=== PATIENT | male | born 1965 | race Caucasian/White ===

== ENCOUNTER 2024-02-23 13:31 | Emergency (ER) | payer OTHER, SELFPAY ==
[2024-02-23 13:35] VITALS: BP 143/100
[2024-02-23 14:36] VITALS: BMI 30.5
[2024-02-23] MEDS: VALIUM 5 MG PO (14:40)
[2024-02-23 14:51] LABS: % Basophils 0.2 % (0-2); % Eosinophils 0.2 % (0-6); % Immature Granulocytes 0.4 % (0-0.5); % Lymphocytes 25.6 % (20.5-51.1); % Monocytes 7.2 % (1.7-9.3); % Neutrophils 66.4 % (42.2-75.2); Absolute Lymphocytes 2.4 10^3/uL (1.2-3.4); Absolute Monocytes 0.7 10^3/uL (0.1-0.6); Absolute Neutrophils 6.2 10^3/uL (1.4-6.5); Hematocrit 45.7 % (39.0-52.0); Hemoglobin 15.7 g/dL (13.0-18.0); Mean Corp Hgb Conc. 34.4 g/dL (33.0-37.0); Mean Corpuscular Hgb 31.1 pg (27.0-31.0); Mean Corpuscular Volume 90.5 fL (80.0-94.0); Mean Platelet Volume 9.8 fL (7.4-10.4); Nucleated Red Blood Cells % 0 % (-); Platelet Count 374 10^3/uL (130-400); Red Blood Cell Count 5.05 10^6/uL (4.70-6.10); White Blood Cell Count 9.3 10^3/uL (4.8-10.8)
[2024-02-23 14:59] VITALS: BP 137/100
--- NOTE | 2024-02-23 15:36 | ED.GENMED ---
History of Present Illness
<ELAN Mejia Jr. Last Filed: 02/25/24 15:09>
General
Chief Complaint: Back Pain
Source: patient and family
Exam Limitations: none
Time Seen by Provider: 02/23/24 14:01
Nursing documentation reviewed up to this point in time: agreed with
History of Present Illness
History of Present Illness:
58-year-old male with past medical history of chronic back pain IBS thyroid disorder presenting to the emergency department today with concerns of ongoing back pain also feels that sometimes his leg will give out also is felt that he is felt some
issues with balance over the past few weeks. He was seen at [facility] yesterday had an assessment there but was discharged home. Denies any specific fevers chest pain changes in bowel or bladder function numbness or weakness to the lower
extremities that are continuous.
Past History
<Jose Pete Jr., PA-C - Last Filed: 02/25/24 15:09>
Past History
ED Past Medical History: Hyperthyroidism and Psychiatric (Bipolar disorder)
ED Past Surgical History: Other (Globe teeth removal)
Social History
Tobacco: Non-smoker
Alcohol: None
Drug: None
Employment: Employed
Review of Systems
<ELAN Mejia Jr. Last Filed: 02/25/24 15:09>
Review of Systems
Allergies reviewed?: Yes
All Other Systems: ROS reviewed and negative except as documented in HPI and ROS
Phy Exam
<ELAN Mejia Jr. Last Filed: 02/25/24 15:09>
Physical Exam
Physical Exam:
GENERAL: Alert , in no apparent distress
EYE: pupils equal and reactive
NECK: Supple, no significant adenopathy.
ENT: o/p clr, mmm.
CARDIAC: Regular rate and rhythm .
LUNGS: Clear breath sounds bilaterally, no acute respiratory distress, no wheezes/rales/rhonchi
ABDOMEN: Soft, without focal tenderness, no r/g, no cvat
NEUROLOGICAL: Alert and oriented, no focal neuro deficits 5 out of 5 upper and lower extremity normal coordination able to ambulate.
SKIN: Warm and dry, skin intact.
MUSCULOSKELETAL: No edema, well perfused.
PSYCH: Normal and appropriate interaction.
Course
<Jose Pete Jr., PA-C - Last Filed: 02/25/24 15:09>
Orders/Labs/Results
Orders:
Orders
02/23/24 14:27
EKG [Electrocardiogram (*1)] Urgent
Reason for Study: Fatigue / Weakness
CT Head W/o Iv Contrast Urgent
Comment:
Reason For Exam: balance issues
EKG- Treatment ONCE
02/23/24 14:32
Diazepam [Valium] 5 mg PO NOW STA
02/23/24 14:33
Diazepam [Valium] 5 mg .ROUTE .STK-MED ONE
02/23/24 14:39
Complete Blood Count/With Diff Urgent
TSH Urgent
02/23/24 15:13
Comprehensive Metabolic Panel Urgent
Kenedy Urgent
02/23/24 15:38
Crisis Consult Urgent
Reason for Consult: depression,
02/23/24 16:27
Ketorolac [Toradol] 30 mg IV NOW STA
02/23/24 20:00
Diazepam [Valium] 5 mg PO BID
Abnormal Lab Results
02/23/24 02/23/24
14:39 15:13
MCH 31.1 H pg
(27.0-31.0)
Absolute Monos (auto) 0.7 H 10^3/uL
(0.1-0.6)
Carbon Dioxide 21 L mmol/L
(22-30)
AST 124 H U/L
(17-59)
TSH 5.59 H uIU/ml
(0.47-4.68)
02/23/24 14:39
02/23/24 15:13
Vital Signs
Initial and Last Documented VS:
Initial Vital Signs
Temp Pulse Resp BP Pulse Ox
98.4 F 120 16 143/100 98
02/23/24 13:35 02/23/24 13:35 02/23/24 13:35 02/23/24 13:35 02/23/24 13:35
Last Documented Vital Signs
Temp Pulse Resp BP Pulse Ox
98.4 F 96 20 136/94 95
02/23/24 13:35 02/23/24 17:00 02/23/24 17:00 02/23/24 16:46 02/23/24 17:00
<Hussein Tovar PA-C - Last Filed: 02/23/24 20:47>
Orders/Labs/Results
Orders:
Orders
02/23/24 14:27
EKG [Electrocardiogram (*1)] Urgent
Reason for Study: Fatigue / Weakness
CT Head W/o Iv Contrast Urgent
Comment:
Reason For Exam: balance issues
EKG- Treatment ONCE
02/23/24 14:32
Diazepam [Valium] 5 mg PO NOW STA
02/23/24 14:33
Diazepam [Valium] 5 mg .ROUTE .STK-MED ONE
02/23/24 14:39
Complete Blood Count/With Diff Urgent
TSH Urgent
02/23/24 15:13
Comprehensive Metabolic Panel Urgent
Kenedy Urgent
02/23/24 15:38
Crisis Consult Urgent
Reason for Consult: depression,
02/23/24 16:27
Ketorolac [Toradol] 30 mg IV NOW STA
02/23/24 20:00
Diazepam [Valium] 5 mg PO BID
Abnormal Lab Results
02/23/24 02/23/24
14:39 15:13
MCH 31.1 H pg
(27.0-31.0)
Absolute Monos (auto) 0.7 H 10^3/uL
(0.1-0.6)
Carbon Dioxide 21 L mmol/L
(22-30)
AST 124 H U/L
(17-59)
TSH 5.59 H uIU/ml
(0.47-4.68)
02/23/24 14:39
02/23/24 15:13
Vital Signs
Initial and Last Documented VS:
Initial Vital Signs
Temp Pulse Resp BP Pulse Ox
98.4 F 120 16 143/100 98
02/23/24 13:35 02/23/24 13:35 02/23/24 13:35 02/23/24 13:35 02/23/24 13:35
Last Documented Vital Signs
Temp Pulse Resp BP Pulse Ox
98.4 F 96 20 136/94 95
02/23/24 13:35 02/23/24 17:00 02/23/24 17:00 02/23/24 16:46 02/23/24 17:00
<Jose Pete Jr., PA-C - Last Filed: 02/25/24 15:09>
MDM/Problems Addressed
MDM/Problems Addressed:
58-year-old male presenting to the emergency department today with concerns of back pain also concerned that he is felt 'off' he has had some fatigue he also claims that his speech seemed off yesterday though it seems normal here. Claims that he
had a few falls over the past few weeks but denies any specific major trauma. Long likely seems to be secondary to his back to potential radicular symptoms. Seems to only be to the right side. No fevers no chest pain or shortness of breath.
Patient given Valium with improvement of symptoms. Labs unremarkable. Kenedy level normal. EKG nonischemic. Head CT ordered considering patient's claims of neurologic symptoms. Symptoms have been ongoing for weeks if CT scan normal likely will
need follow-up with neurology as well as spine surgery for patient's ongoing back pain.
<Hussein Tovar PA-C - Last Filed: 02/23/24 20:47>
*Critical Care Note
Total Time (30-74mins, 75-104mins- exclusive of procedures): Not Applicable
<Hussein Tovar PA-C - Last Filed: 02/23/24 20:47>
Update Note
Update Note:
Imaging reviewed, CT unremarkable. Pt d/c in stable condition
ED Attending Note
<Jose Pete Jr., PA-C - Last Filed: 02/25/24 15:09>
-
Portions of this chart may have been created with voice recognition software.� Occasional wrong word or��sound alike� substitutions may have occurred due to the inherent limitations of voice recognition software.
Discharge Plan
Departure
Patient Disposition: Home (Routine Discharge)
Date of Disposition: 02/23/24
Time of Disposition: 18:15
Patient with high blood pressure during this ER visit?: No
Condition: Good
Covid-19: Not Applicable
Discharge Problem:
Intermittent memory loss, Back pain
Instructions: Low Back Pain (DC), Radiculopathy (DC)
Prescriptions:
New
tizanidine [Zanaflex] 4 mg capsule
4 mg PO BID PRN (Reason: muscle spasticity) Qty: 10 0RF
No Action
levothyroxine 100 MCG tablet
100 mcg PO DAILY
lithium carbonate 600 MG capsule
600 mg PO BID
divalproex 250 MG tablet,delayed release (DR/EC)
750 mg PO HS
trazodone 150 MG tablet
150 mg PO HS
buspirone [BuSpar] 30 MG tablet
30 mg PO BID
rosuvastatin 10 MG tablet
10 mg PO DAILY
lurasidone [Latuda] 60 MG tablet
60 mg PO DAILY
Dulcolax 30 ML Liquid
30 ml PO DAILY
oxycodone-acetaminophen 1 EACH tablet
1 - 2 tab PO PRN PRN (Reason: pain)
cannabidiol [Epidiolex] 1 UNIT solution
1 unit PO PRN PRN (Reason: anxiety)
albuterol sulfate 1 PUFF HFA aerosol inhaler
1 puff inhalation PRN PRN (Reason: Asthma)
clonazepam 0.5 MG tablet
0.5 mg PO PRN PRN (Reason: anxiety)
Referrals:
Enrique Mcneil MD [Active] - Follow up in 5-7 days
Mae Powers MD [Active] - Follow up in 5-7 days
UNKNOWN - PT DOES,NOT KNOW [Unknown Provider] -
Stand Alone Forms: Return to Work
Activity Restrictions/Additional Instructions:
You came to the emergency department today with concerns of back pain and additional symptoms. Here had a reassuring assessment. Please follow close with the back doctor as well as the brain doctor. Return to the emergency department for any
worsening, new or concerning symptoms.
Interventions
Interventions:
*Risk Screen - Suicide Last Done: 02/23/24 14:37
*General Assessment Last Done: 02/23/24 14:37
*Neglect/Abuse Screening Last Done: 02/23/24 14:37
ED- Fall Risk Assessment Last Done: 02/23/24 14:37
*ED COVID-19 Vaccine History Last Done: 02/23/24 14:37
*Nursing Disposition Last Done: 02/23/24 18:57
ED-Musculoskeletal Assessment Last Done: 02/23/24 14:37
Discharge Date and Time
Discharge Date/Time: 02/23/24 18:57
Print Language: CHINESE
[2024-02-23 15:39] LABS: ALT (SGPT) 40 U/L (0-50); AST (SGOT) 124 U/L (17-59); Albumin 4.9 g/dl (3.5-5.0); Alkaline Phosphatase 58 U/L (38-126); Blood Urea Nitrogen 19 mg/dl (9-20); Calcium 9.9 mg/dl (8.4-10.2); Carbon Dioxide 21 mmol/L (22-30); Chloride 104 mmol/L (98-107); Estimated Creatinine Clearance 90 ml/min; Glucose 87 mg/dl (70-99); Lithium 0.6 mmol/L (0.6-1.2); Potassium 4.5 mmol/L (3.5-5.1); Sodium 140 mmol/L (135-145); Total Bilirubin 0.9 mg/dl (0.2-1.3); Total Protein 7.2 g/dl (6.3-8.2); eGFR > 60.00
[2024-02-23 15:40] LABS: TSH 5.59 uIU/ml (0.47-4.68)
[2024-02-23] MEDS: TORADOL 30 MG IV (16:32)
[2024-02-23 16:46] VITALS: BP 136/94
== END 2024-02-23 18:57 | disposition home or self-care (01) ==
LOC: EMR 13:31
PROVIDERS: Physician Assistant; EMERGENCY PHYSICIAN Emergency Medicine; FAMILY PHYSICIAN Family Medicine
DX: R41.3 Other amnesia (principal); M54.9 Dorsalgia, unspecified
CPT/HCPCS: 99285; 96374; 70450; 80053; 80178; 84443; 85025; 93005

== ENCOUNTER → 2024-02-28 10:20 | Outpatient (REF) | payer OTHER, SELFPAY | LOC: RAD 10:20 | PROVIDERS: ATTENDING PHYSICIAN Physician Assistant Medical | DX: M54.41 Lumbago with sciatica, right side (principal) | CPT/HCPCS: 72110 ==